=== PATIENT | female | born 1985 | race Caucasian/White ===

== ENCOUNTER 2019-10-25 08:01 | Outpatient (CLI) | payer BC ==
--- NOTE | 2019-10-25 08:37 | ULT ---
Focused ultrasound of the right hip: 10/25/2019 HISTORY: Swelling and discoloration of the skin TECHNIQUE: Multiplanar grayscale sonographic imaging in the region of clinical concern provided in th e "right hip region" FINDINGS: There is a small nonspecific heterogeneously hypoechoic area of abnormality just deep to e skin in the area of palpable concern measuring 2.2 x 0.4 x 1.3 cm. No associated shadowing. There is mild peripheral blood flow. IMPRESSION: Nonspecific linear area of decreased echogenicity deep to the skin in the area of concern . Findings may signify small volume fluid in the subcutaneous soft tissues associated with an inflammatory/infectious process such as cellulitis. Developing phlegmon or very small abscess cannot be excluded. Continued follow-up to resolution advised.
== END 2019-10-25 08:02 | disposition home or self-care (01) ==
LOC: SCSULT 08:01
PROVIDERS: ATTEND Family Medicine
DX: R22.9 Localized swelling, mass and lump, unspecified (principal)
CPT/HCPCS: 76999